=== PATIENT | male | born 1950 | race Caucasian/White ===

== ENCOUNTER 2017-06-04 04:11 | Observation (INO) ==
[2017-06-04] MEDS ORDERED: Aspirin 81 MG TAB.CHEW PO ONE (04:20)
--- NOTE | 2017-06-04 04:23 | Emergency Department Note ---
Disposition Clinical Impression: Chest pain Qualifiers: Chest pain type: unspecified Qualified Code(s): R07.9 - Chest pain, unspecified Disposition: Admitted As Inpatient Condition: Good [facility]: [facility] Care Provider[facility] - Time of Disposition: 05:10 Chest Pain HPI - General Time Seen by Provider: 06/04/17 04:17 Source: patient, EMS Limitations: no limitations Vital Signs Reviewed: Yes Nursing Notes Reviewed: Yes - History of Present Illness Pt complaint: chest pain Onset (ago): hour(s) (2) Duration: constant Onset: during rest (was asleep) Pain Location: substernal (radiated to right chest) Severity scale (1-10): 9 Quality: sharp Pain Radiation: LUE Improves with: remaining still Worsens with: nothing Associated symptoms: Reports: nausea, diaphoresis, dyspnea Treatments prior to arrival chest pain: aspirin (81mg) - Related Data Home Medications Medication Instructions Recorded Confirmed Insulin Glargine [Lantus] 14 unit 03/24/15 Metformin 1,000 PO 1-2XD 03/24/15 Previous Rx's Medication Instructions Recorded Aspirin Enteric Coated [Aspirin EC] 81 mg PO DAILY #0 tablet.dr 03/25/15 Atorvastatin [Lipitor] 80 mg PO HS #30 tablet 03/25/15 Clopidogrel Bisulfate [Plavix] 75 mg PO DAILY #30 tablet 03/25/15 Nicotine Patch [Nicoderm] 21 mg TD DAILY PRN #30 patch.td24 03/25/15 Ticagrelor [Brilinta] 90 mg PO BID #60 tablet 03/25/15 Allergies Allergy/AdvReac Type Severity Reaction Status Date / Time No Known Allergies Allergy Verified 03/24/15 11:36 All systems ED: reviewed and negative except as stated. Review of Systems: As Per HPI Constitutional: Denies: fever, chills Eyes: Denies: vision change ENT ED: Denies: throat pain Cardiovascular: Reports: as per HPI Respiratory: Reports: as per HPI. Denies: wheezes Gastrointestinal: Denies: abdominal pain, nausea, vomiting Genitourinary: Denies: dysuria Musculoskeletal: Reports: back pain (chronic) Integumentary: Denies: rash Neurological: Denies: headache Psychiatric: Denies: anxiety Endocrine: Denies: fatigue Allergic/Immunologic: Denies: facial swelling Chest Pain PMH - Past Medical History Medical history: Reports: diabetes, hyperlipidemia, hypertension, myocardial infarction, other Surgical history: Reports: angioplasty/stent, colectomy Psychiatric history: Reports: prior suicide attempt - Social History Smoking Status: Current every day smoker Alcohol use: Reports: none Drug use: Reports: none Physical Exam - General Limitations: no limitations General appearance: alert, in no apparent distress - Head Head exam: normocephalic - Eye Eye exam: Absent: conjunctival injection - ENT ENT exam: mucous membranes moist - Neck Neck exam: Present: full ROM - Chest Chest inspection: Present: symmetric chest wall rise - Respiratory Respiratory exam: Present: normal lung sounds bilaterally. Absent: respiratory distress - Cardiovascular Cardiovascular exam: Present: regular rate, normal rhythm - Abdominal Exam Abdominal exam: Present: soft, Non-Tender - Extremities Exam Extremities exam: Present: normal inspection, full ROM, normal capillary refill. Absent: pedal edema - Back Exam Back exam: Present: full ROM - Neurological Exam Neurological exam: Present: alert - Psychiatric Psychiatric exam: Present: normal affect, normal mood - Skin Skin exam: Present: warm, dry, intact, normal color. Absent: rash, cyanosis, diaphoresis Course Course Narrative: 66-year-old male diabetic smoker arrives via squad from home with c/o chest pain. It started when he was using his computer at home approx 2 hours prior to his arrival. Patient describes it as substernal 9 out of 10 sharp chest pain, that soon radiated to his right anterior chest. He states he felt pain and numbness in his LUE, but denies any neck or jaw pain. He states he was sleeping and had woke him from sleep, had that time he had accompanying shortness of breath, nausea, and hot flashes. He taken 81 mg of aspirin. He attempted to make it go away by resting when it had not, he attempted to be seen at the [place] [facility] but they were closed. Squad had been called from the [place] and transported him to the ED. He states that the pain has this point, now describing it 5 out of 10. Patient states that it is worse than his previous MIs (per pt report approximately 2014, and 2011), with a total of 3 cardiac stents, and 1 right carotid stent. He denies any recent cardiac workup. He states he feels it is another MA otherwise he would not have wanted to be seen since he usually doesn't like hospital visits. He mentions chronic back pain, but he denies recent illness, cough, abdominal pain, fever, bowel or bladder changes. EKG upon patient's arrival shows no acute signs of ischemia. Patient seen and examined. aspirin ordered. Workup initiated. Patient declines analgesics and antiemetics. - Reevaluation(s) Reevaluation #1: Patient's vital stable. He now describes pain as 2 out of 10. His workup tonight is unremarkable. Patient does have a concerning history, with significant cardiac risk factors. Medical records show that he had a STEMI approximately 2 years ago, with stent placement. Patient denies any recent cardiac workup. Patient discussed with Dr. Regan who agreed with workup, admission to hospital service for further cardiac evaluation. Per patient, home meds include: Metformin twice a day, Plavix, baby aspirin, atorvastatin, vitamin D3, and 28 units Lantus at bedtime Time: 05:15 Reevaluation #2: Pt discussed with and accepted by hospitalist Dr. Beckwith Time: 05:22 Vital Signs Temperature 98.2 F 06/04/17 04:14 Pulse Rate 81 06/04/17 04:14 Respiratory Rate 18 06/04/17 04:14 Blood Pressure 128/74 06/04/17 04:14 O2 Sat by Pulse Oximetry 98 06/04/17 04:14 Temperature 98.2 F 06/04/17 04:14 Pulse Rate 78 06/04/17 05:11 Respiratory Rate 18 06/04/17 05:11 Blood Pressure 133/77 06/04/17 05:11 O2 Sat by Pulse Oximetry 97 06/04/17 05:11 Oxygen Delivery Oxygen Delivery Room Air Chest Pain - MDM Narrative Medical decision making narrative: Chest X-Ray 06/04/17 04:20 IMPRESSION: Negative portable chest. D/ / Sudheer Turner MD / Sudheer Turner MD Interpreting Provider: Sudheer Turner MD Laboratory Tests 06/04/17 06/04/17 06/04/17 04:26 04:26 04:26 WBC 11.5 H RBC 5.12 Hgb 14.8 Hct 45.7 MCV 89.3 MCH 28.9 MCHC 32.4 RDW 14.1 Plt Count 229 MPV 9.6 Immature Gran % 0.5 Seg Neutrophils % 70.7 Lymphocytes % 18.2 Monocytes % 5.1 Eosinophils % 5.0 Basophils % 0.5 Neutrophils # 8.1 Lymphocytes # 2.1 Monocytes # 0.6 Eosinophils # 0.6 Basophils # 0.1 PT 11.4 INR 1.1 APTT 43.3 H Sodium 133 L Potassium 4.0 Chloride 101 Carbon Dioxide 28 BUN 16 Creatinine 1.00 Est GFR ( Amer) > 60 Est GFR (Non-Af Amer) > 60 BUN/Creatinine Ratio 16 Glucose 195 H Calculated Osmolality 283 Calcium 9.5 Troponin I < 0.03 - Lab Data Lab results reviewed: Yes I reviewed the patient's lab results. Result diagrams: 06/04/17 04:26 06/04/17 04:26 Lab Results 06/04/17 06/04/17 06/04/17 Range/Units 04:26 04:26 04:26 WBC 11.5 H (4.3-11.1) K/mcL RBC 5.12 (4.19-5.50) M/mcL Hgb 14.8 (12.9-16.9) g/dL Hct 45.7 (37.5-50.1) % MCV 89.3 (83.0-100.0) fL MCH 28.9 (28.0-33.3) pg MCHC 32.4 (31.6-35.5) g/dL RDW 14.1 (11.5-14.5) % Plt Count 229 (140-400) K/mcL MPV 9.6 (9.4-12.4) fL Immature Gran % 0.5 (0-4) % Seg Neutrophils % 70.7 % Lymphocytes % 18.2 % Monocytes % 5.1 % Eosinophils % 5.0 % Basophils % 0.5 % Neutrophils # 8.1 (1.6-8.9) K/mcL Lymphocytes # 2.1 (0.6-4.6) K/mcL Monocytes # 0.6 (0.0-1.3) K/mcL Eosinophils # 0.6 (0.0-0.6) K/mcL Basophils # 0.1 (0.0-0.2) K/mcL PT 11.4 (9.4-12.1) Seconds INR 1.1 APTT 43.3 H (26.0-36.0) Seconds Sodium 133 L (136-145) mEq/L Potassium 4.0 (3.5-5.1) mEq/L Chloride 101 (98-107) mEq/L Carbon Dioxide 28 (23-29) mEq/L BUN 16 (8-23) mg/dL Creatinine 1.00 (0.70-1.30) mg/dL Est GFR ( Amer) > 60 (> 60) Est GFR (Non-Af Amer) > 60 (> 60) BUN/Creatinine Ratio 16 (6-26) Glucose 195 H (70-105) mg/dL Calculated Osmolality 283 (280-300) Calcium 9.5 (8.6-10.3) mg/dL Troponin I < 0.03 (< 0.04) ng/mL - Radiology Data Radiology results reviewed: Yes I reviewed the patient's radiology results. - EKG Data EKG attestation: Yes I reviewed and interpreted this EKG. EKG shows normal: sinus rhythm Rate: normal Rhythm: NSR [place]/QRS: normal When compared to previous EKG there are: no significant changes (previous EKG february 2015) Interpretation: no acute changes Heart Score - Score History: Moderately Suspicious EKG: Normal Age: Greater than 65 Risk Factors: Equal/Greater than 3 risk factor or history of atherosclerotic disease Troponin: Less than normal limit HEART Score Total: 5
[2017-06-04 04:42] LABS: Basophils # 0.1 K/mcL (0.0-0.2); Basophils % 0.5 %; Eosinophils # 0.6 K/mcL (0.0-0.6); Hematocrit 45.7 % (37.5-50.1); Hemoglobin 14.8 g/dL (12.9-16.9); Immature Granulocytes % 0.5 % (0-4); Lymphocytes # 2.1 K/mcL (0.6-4.6); Lymphocytes % 18.2 %; Mean Corpuscular HGB Conc 32.4 g/dL (31.6-35.5); Mean Corpuscular Hemoglobin 28.9 pg (28.0-33.3); Mean Corpuscular Volume 89.3 fL (83.0-100.0); Mean Platelet Volume 9.6 fL (9.4-12.4); Monocytes # 0.6 K/mcL (0.0-1.3); Monocytes % 5.1 %; Neutrophils # 8.1 K/mcL (1.6-8.9); Platelet Count 229 K/mcL (140-400); Red Blood Count 5.12 M/mcL (4.19-5.50); Red Cell Distribution Width 14.1 % (11.5-14.5); Segmented Neutrophils % 70.7 %
--- NOTE | 2017-06-04 04:49 | Emergency Department Note ---
START Narrative - START START: For this encounter, I have reviewed the [employer] EXECUTIVE [employer]ODUCER or PA documentation, treatment plan, and medical decision making; and I have had face to face time with this patient. 66 year old male presents to the ED via EMs for chest pain and has a history of KS 2 years ago with concnerning risk factors. We will do cardiopulmonary workup and admit to medicine.
[2017-06-04 04:55] LABS: INR 1.1; Prothrombin Time 11.4 Seconds (9.4-12.1)
[2017-06-04 04:58] LABS: Activated Partial Thrombo Time 43.3 Seconds (26.0-36.0)
[2017-06-04 05:00] LABS: BUN/Creatinine Ratio 16 (6-26); Blood Urea Nitrogen 16 mg/dL (8-23); Calcium 9.5 mg/dL (8.6-10.3); Carbon Dioxide 28 mEq/L (23-29); Chloride 101 mEq/L (98-107); Glucose 195 mg/dL (70-105); Osmolality,Calculated 283 (280-300); Sodium 133 mEq/L (136-145); eGFR For African Americans > 60 (> 60); eGFR For Non-African Americans > 60 (> 60)
[2017-06-04 05:01] LABS: Troponin I < 0.03 ng/mL (< 0.04)
[2017-06-04] MEDS ORDERED: Naloxone 0.4 MG/ML INJ IVP PRN (05:28)
[2017-06-04] MEDS ORDERED: Acetaminophen 325 MG TABLET PO PRN (05:28)
[2017-06-04] MEDS ORDERED: Dextrose Gel 15 GM/37.5 ML TUBE PO PRN ×2 (05:30)
[2017-06-04] MEDS ORDERED: D5% in Water 1,000 ML IVC PRN (05:30)
[2017-06-04] MEDS ORDERED: *HR* Dextrose 50 % in Water (Syg) 50 ML SYRINGE IVP PRN (05:30)
--- NOTE | 2017-06-04 06:07 | Internal Med History&Physical ---
Date of Encounter: 06/04/17 Time of Encounter: 06:00 Assessment and Plan (1) Chest pain Current visit: Yes Status: Acute Observation. Monitor with telemetry. History of coronary artery disease and prior DE. Continues to smoke. High risk for ACS. Monitor vital signs. Trend troponins. 2-D echocardiogram. Nitroglycerin as needed for chest pain. If troponins negative, will do stress test. Qualifiers: Chest pain type: precordial pain Qualified Code(s): R07.2 - Precordial pain (2) Coronary artery disease Current visit: Yes Status: Chronic Patient presenting with chest pain. Trend troponins. Monitor vital signs. Continue aspirin and Plavix. Qualifiers: Coronary Disease-Associated Artery/Lesion type: tribal artery [place] vs. 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 Resume home medications once available. (4) Diabetes Current visit: Yes Status: Chronic Monitor blood sugars. Sliding scale coverage. Continue long-acting insulin. Check A1c. 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 Understands the importance of quitting. Does not want nicotine patch at this time Qualifiers: Nicotine product type: cigarettes Substance use status: other nicotine- induced disorder Qualified Code(s): F17.218 - Nicotine dependence, cigarettes , with other nicotine-induced disorders Internal Medicine - H&P: HPI Chief complaint: Chest pain Admitted From: Emergency Dept Plans for Post Hospital Care: Home History of present illness: Mr. Ng is a 66 year old male patient with a history of coronary artery disease , hypertension, chronic tobacco abuse, diabetes presented to the ER with complaints of chest pain. BNP 2:30 this morning when the patient was at home and working on his computer. He describes pain as central in location 9 out of 10 in severity at its worst and radiating to the right side of the of the chest. At The same time he had some heaviness in his left arm along with numbness that lasted for a few minutes. He took aspirin at home and went to the ER at [place] and was then transferred here. By the time he came to the ER here his pain had come down to 5 out of 10 in severity. He now feels much better although not completely pain free. He had cardiac catheterization and stent placement to the right coronary artery in 2014. Since then he has been doing well overall. He has never had any chest pain since then. He denies any fever or chills or night sweats. No palpitations. He has mild shortness of breath along with diaphoresis when the chest pain first began. Past Med Surg Social Fam HX - Past Medical History Attestation: Yes The following information was validated with the patient. Source: patient Medical history: diabetes, hyperlipidemia, hypertension, myocardial infarction, other Psychiatric history: prior suicide attempt - Past Surgical History Surgical History: angioplasty/stent, colectomy - Social History Smoking Status: Current every day smoker Smokeless Tobacco Status: No Alcohol use: none Drug use: none - Additional Family History Additional family history: Reviewed and found to be noncontributory at this time Internal Medicine - H&P: Meds Insulin Glargine [Lantus] 28 unit HS 03/24/15 [History] Metformin 1,000 PO 1-2XD 03/24/15 [History] Aspirin Enteric Coated [Aspirin EC] 81 mg PO DAILY #0 tablet.dr 03/25/15 [Rx] Atorvastatin [Lipitor] 80 mg PO HS #30 tablet 03/25/15 [Rx] Clopidogrel Bisulfate [Plavix] 75 mg PO DAILY #30 tablet 03/25/15 [Rx] Nicotine Patch [Nicoderm] 21 mg TD DAILY PRN #30 patch.td24 03/25/15 [Rx] Vitamin D3 06/04/17 [History] 3 Allergy/AdvReac Type Severity Reaction Status Date / Time No Known Allergies Allergy Verified 03/24/15 11:36 All Systems PM: A 10-system review of systems was performed and is negative for pertinent findings except as documented above in the HPI. - Constitutional Constitutional: no chills, no fever(s), no night sweats - EENT Eyes: no change in vision, no discharge, no pain, no photophobia Ears: no ear discharge, no ear pain, no tinnitus Nose, mouth and throat: no dysphagia, no nasal discharge, no neck pain, no sore throat - Cardiovascular Cardiovascular ROS IM: chest pain, no diaphoresis, no dyspnea, no lightheadedness, no palpitations, no syncope - Respiratory Respiratory: no cough, no dyspnea, no wheezing, no excessive phlegm production - Gastrointestinal Gastrointestinal: no abdominal pain, no diarrhea, no hematemesis, no hematochezia, no melena, no nausea, no vomiting - Musculoskeletal Musculoskeletal ROS IM: no numbness, no tingling - Integumentary Integumentary IM: no rash, no unusual bruising - Neurological Neurological ROS: no confusion, no convulsions, no focal weakness, no numbness, no tingling, no tremor(s) - Hematologic/Lymphatic Hematologic/Lymphatic: no easy bruising - Constitutional Vitals: Temp Pulse Resp BP Pulse Ox 98.2 F 78 18 133/77 97 06/04/17 04:14 06/04/17 05:11 06/04/17 05:11 06/04/17 05:11 06/04/17 05:11 General appearance: Present: cooperative, mild distress, A&O X 3, pleasant, answers questions appropriately - Eye Eye exam: Present: EOMI, PERRL, conjuntiva pink, sclera anicteric - Neck Neck exam general surgery: Present: supple, trachea midline. Absent: lymphadenopathy - Respiratory Respiratory exam: Present: CTAB, prolonged expiratory phase. Absent: accessory muscle use, rales, rhonchi, wheezes - Cardiovascular Cardiovascular exam: Present: RRR, +S1, +S2. Absent: diastolic murmur, gallop, rubs, systolic murmur - GI/Abdominal GI/Abdominal exam: Present: normal bowel sounds, soft, no peritoneal signs. Absent: distended, tenderness - Extremities Exam Extremities exam: Present: warm, radial pulses palpable and symmetrical. Absent : calf tenderness, cyanotic, pedal edema - Neurological Exam Neurological exam: Present: CN II-XII intact, oriented X3, no focal deficits. Absent: facial droop, speech deficit - Skin Skin exam: Present: dry, intact Internal Med - H&P Results - Labs CBC & Chem 7: 06/04/17 04:26 06/04/17 04:26
[2017-06-04 06:11] LABS: Chol/HDL Ratio 3.5 (0-4.9); Cholesterol 88 mg/dL (< 200); HDL Cholesterol 25 mg/dL (40-59); LDL Cholesterol,Calculated 24 mg/dL (0-99); Triglycerides 197 mg/dL (< 150)
[2017-06-04] MEDS: Insulin LISPRO 300 UNITS/3 ML VIAL SQ SCH ×3 (06:46→18:30)
[2017-06-04 09:03] LABS: Estimated Average Glucose 220 mg/dl; Hemoglobin A1C 9.3 %
[2017-06-04] MEDS: Aspirin Enteric Coated 81 MG Tablet PO SCH (09:18)
[2017-06-04] MEDS ORDERED: Regadenoson 0.4 MG/5 ML SYRINGE IVP ONE (09:27)
--- NOTE | 2017-06-04 15:09 | Cardiology Consult Note ---
<Julita Ibanez - Last Filed: 06/04/17 15:16> Date of Encounter: 06/04/17 Time of Encounter: 15:00 Assessment and Plan (1) Abnormal stress test Current Visit: Yes Status: Acute Patient presented with chest pain; symptoms somewhat atypical, states similar to prior [place] presentation. Troponin negative x2. No acute ST/T wave abnormalities noted. Last LHC 2014--s/p PCI to RCA; otherwise non-obstructive CAD. EF preserved. Abnormal stress today--mild basal to distal inferior wall perfusion defect in which ischemia cannot be excluded. Echo pending. Discussed medical management (BB, nitrates) vs. LHC with possible PCI. Patient will further discuss with Dr. Crocker. NPO after MN for possible LHC in AM. Will start low dose betablocker (has not been on d/t bradycardia in past--avg HR =73 since admit). Consider addition of nitrates. (2) Coronary artery disease Current Visit: Yes Status: Chronic Hx of CAD s/p PCI. Hx of STEMI 02/2015. Plan as above. Asa, statin, plavix. Has not been on BB d/t baseline bradycardia in the past, avg HR=73 overnight. Will start low dose betablocker and monitor HR overnight. Qualifiers: Coronary Disease-Associated Artery/Lesion type: [place] artery [place] vs. transplanted heart: [place] heart Associated angina: with stable angina Qualified Code(s): I25.118 - Atherosclerotic heart disease of [place] coronary artery with other forms of angina pectoris (3) Nicotine dependence Current Visit: Yes Status: Chronic tobacco cessation counseling provided. Qualifiers: Nicotine product type: cigarettes Substance use status: other nicotine- induced disorder Qualified Code(s): F17.218 - Nicotine dependence, cigarettes , with other nicotine-induced disorders Discussion w patient/family: The assessment and plan as outlined above was discussed with the patient and/or family members who expressed understanding and agreement. All questions were answered. Thank you for involving us in the care of your patient. Please call with any questions. The patient will be discussed and reviewed with Dr. Crocker; changes to be made accordingly. History of Present Illness Consult date: 06/04/17 Requesting physician: Angelia Cedeno Consult reason: Abnormal stress Chief complaint: Chest pain History of present illness: Mr. Ng is a 66 year old male with PMHx significant for prior [place] (STEMI 02/2015 ) s/p PCI, HTN, poorly controlled DMII, and tobacco use who presented to the [place] with complaints of chest pain. Reports pain started yesterday and lasted for several hours, described as mid-sternal sharpness with radiation across right side of chest. Associated symptoms include left arm numbness (to elbow) and a hot flash. He reports similar symptoms to prior [place]. He was then transferred from [place] to [facility] for further evaluation. Troponin negative x2, no acute ST/T wave changes noted. Cardiology consulted today for abnormal stress test--mild intensity basal to distal inferior perfusion defect which ischemia cannot be excluded. Echo is pending. Prior CV testing: TTE 02/2015: LVEF 55-60%, no significant valvular dysfunction, mild LVDD, normal wall motion LHC 02/2015: s/p successful PTCA/JOSE to mRCA; otherwise non-obstructive CAD ( 30% pLAD). Past Med Surg Social Fam HX - Past Medical History Attestation: Yes The following information was validated with the patient. Source: patient Medical history: coronary artery disease, diabetes, hyperlipidemia, hypertension , myocardial infarction, other (diabetic neuropathy) Psychiatric history: prior suicide attempt - Past Surgical History Surgical History: angioplasty/stent, colectomy - Social History Smoking Status: Current every day smoker Packs per day: 1.5-2 Smokeless Tobacco Status: No Alcohol use: none Drug use: none - Family History Mother Hx Family Cardiac Disorders: Yes (CHF, CABG) Medications and Allergies Insulin Glargine [Lantus] 30 unit SQ HS 03/24/15 [History] Aspirin Enteric Coated [Aspirin EC] 81 mg PO DAILY #0 tablet.dr 03/25/15 [Rx] Atorvastatin [Lipitor] 80 mg PO HS #30 tablet 03/25/15 [Rx] Clopidogrel Bisulfate [Plavix] 75 mg PO DAILY #30 tablet 03/25/15 [Rx] Cholecalciferol (D-3) [Vitamin D] 1,000 unit PO DAILY 06/04/17 [History] Ergocalciferol (VITAMIN D2) [Vitamin D2] 50,000 unit PO QWEEK 06/04/17 [History] Insulin ASPART [NovoLOG] 0 unit SQ TID PRN 06/04/17 [History] metFORMIN [Glucophage] 1,000 mg PO BID 06/04/17 [History] 3 Allergy/AdvReac Type Severity Reaction Status Date / Time No Known Allergies Allergy Verified 03/24/15 11:36 All Systems Review: The remainder of the systems were reviewed and are negative - Cardiovascular Cardiovascular: as per HPI Physical Examination General: Conversant, No Apparent Distress HEENT: Atraumatic, Normocephaly, Mucus Membranes Moist Cardiac: Reg Rate and Rhythm, Normal S1 and S2 Lungs: Normal Breath Sounds Neuro: Alert and responsive Abdomen: Soft Skin: No rashes noted on visualized skin Musculoskeletal: No Chest Wall Tenderness Extremities: Other (mild BLE edema) Results 06/04/17 04:26 06/04/17 04:26 Lab Results 06/04/17 10:28 Troponin I < 0.03 Active Medications Acetaminophen (Tylenol) 650 mg PO Q6HR PRN PRN Reason: Mild Pain/Fever Stop: 12/04/17 05:29 Aspirin (Aspirin Ec) 81 mg PO DAILY ELLEN Stop: 12/04/17 09:01 Last Admin: 06/04/17 09:18 Dose: Not Given Atorvastatin Calcium (Lipitor) 80 mg PO HS [facility] Stop: 12/04/17 21:01 Clopidogrel Bisulfate (Plavix) 75 mg PO DAILY ELLEN Stop: 12/04/17 09:01 Last Admin: 06/04/17 09:18 Dose: Not Given Dextrose/Water (Dextrose 50% (Syg)) 25 ml IVP AD PRN PRN Reason: Hypoglycemia Stop: 12/04/17 05:31 Glucagon (Glucagen) 1 mg IM ONCE PRN PRN Reason: Hypoglycemia Stop: 12/04/17 05:31 Glucose (Gluctose) 15 gm PO ONCE PRN PRN Reason: Hypoglycemia Stop: 12/04/17 05:31 Glucose (Gluctose) 30 gm PO ONCE PRN PRN Reason: Hypoglycemia Stop: 12/04/17 05:31 Dextrose (Dextrose 5%) 1,000 mls @ 100 mls/hr IVC .Q10H PRN PRN Reason: HYPOGLYCEMIA Stop: 12/04/17 05:31 Insulin Human Lispro (Humalog) 0 units SQ Q6HR ELLEN PRN Reason: Protocol Stop: 12/04/17 06:01 Last Admin: 06/04/17 11:53 Dose: Not Given Naloxone HCl (Narcan) 0.4 mg IVP Q2MIN PRN PRN Reason: SEE COMMENTS Stop: 12/04/17 05:29 - Imaging and Cardiology Stress Test: report reviewed Echo: report reviewed Cardiac cath: report reviewed Other Results: 12 hour tele: avg HR=73 SR. No significant event noted. - EKG Interpretation EKG results cardiology: personally reviewed Consult Discharge Plan - Plan Referrals: [facility] [Primary Care Provider] - <Serjio Crocker - Last Filed: 06/05/17 11:05> Date of Encounter: 06/05/17 - Attending Attestation I have personally performed a face to face evaluation on this patient. I have reviewed and agree with the care plan. History and Exam by me shows: 66 YOM with hx of CAD and 3 stents in the past. Last LHC 2014 with PCI to the RCA. Complains of chest pain RSCP, heaviness non radiating lasting about 30 mins more intense than his episode in 2015 with similiar characteristics. We discussed the findings on his NST and the possibilities of a LHC Vs medical management and he has now decided to proceed with a LHC. He is a reliable historian with previous 2 episodes of chest pain resulting in PCI. Assessment and Plan Discussion w patient/family: The assessment and plan as outlined above was discussed with the patient and/or family members who expressed understanding and agreement. All questions were answered. Thank you for involving us in the care of your patient. Please call with any questions. History of Present Illness History of present illness: Mr. Ng is a 66 year old male All Systems Review: The remainder of the systems were reviewed and are negative Physical Examination Vital Signs, Last 4 Hours Temp Pulse Resp BP Pulse Ox 06/05/17 09:30 94 06/05/17 07:34 98.0 F 63 17 141/81 94 Results 06/05/17 05:01 06/05/17 05:01 Lab Results 06/04/17 06/04/17 06/05/17 10:28 16:34 05:01 WBC 10.0 Hgb 14.3 Hct 44.5 Plt Count 229 INR APTT Sodium Potassium Chloride Carbon Dioxide BUN Creatinine Glucose Calcium Troponin I < 0.03 < 0.03 06/05/17 06/05/17 05:01 05:01 WBC Hgb Hct Plt Count INR 1.1 APTT 41.3 H Sodium 136 Potassium 4.1 Chloride 104 Carbon Dioxide 24 BUN 21 Creatinine 0.98 Glucose 230 H Calcium 9.4 Troponin I
[2017-06-04] MEDS: Metoprolol XL (24 HR) Succ 25 MG TAB.ER.24H PO SCH (16:02)
--- NOTE | 2017-06-04 16:20 | Internal Med Progress Note ---
Date of Encounter: 06/04/17 Time of Encounter: 16:17 - Assessment and plan (1) Abnormal stress test Current Visit: Yes Status: Acute Assessment and plan: Patient presented with chest pain with atypical symptoms at the patient states were similar to his previous presentation with heart attack Troponin negative x2. No acute ST/T wave abnormalities on EKG Previous left heart catheter in 2015 status post PCI to the RCA, otherwise nonobstructive CAD with preserved EF Stress test completed and was reported as: Abnormal stress with mild basal to distal inferior wall perfusion defect in which ischemia cannot be excluded. Echo pending. Cardiology was consulted and discussed medical management versus [facility] with possible PCI. Patient discussed with acid cleaner and decided on left heart catheter. NPO after midnight for left heart catheter in a.m. Cardiology started on low-dose beta jose l as he has not been on a beta jose l jose l in the past due to bradycardia. Cardiology is considering addition of nitrates as well. (2) Chest pain Current Visit: Yes Status: Acute Assessment and plan: 66-year-old male with a history of CAD, hypertension, chronic tobacco abuse, diabetes and previous heart catheter presented to the emergency room with complaints of chest pain. He described the pain as central in location 9 out 10 in severity at its worst it radiating to the right side of his chest. At the same time he had some heaviness in his left arm along with numbness that lasted for a few minutes. He took aspirin and went to the ER at the [facility]. He was transferred to this facility. By the time he arrived to the ER at this facility is pain at come down to 5 out of 10. He was not completely pain free on arrival but felt much better. His last cardiac catheterization was in 2014 with a stent placed to the right coronary artery. Had no chest pain since that time and has been doing well in general. Troponins are negative EKG without ST changes Stress test was abnormal Cardiology consult Plan for left heart catheter in the a.m. with nothing by mouth after midnight Patient is aware. He is also started on a beta jose l Qualifiers: Chest pain type: precordial pain Qualified Code(s): R07.2 - Precordial pain (3) Coronary artery disease Current Visit: Yes Status: Chronic Qualifiers: Coronary Disease-Associated Artery/Lesion type: [place] artery [place] vs. transplanted heart: [place] heart Associated angina: with stable angina Qualified Code(s): I25.118 - Atherosclerotic heart disease of [place] coronary artery with other forms of angina pectoris (4) Diabetes Current Visit: Yes Status: Chronic Assessment and plan: Accu-Cheks before meals and at bedtime with sliding scale insulin. Hold oral glycemic agents until discharge Qualifiers: Diabetes mellitus type: type 2 Diabetes mellitus [facility] insulin use: with terminal clerk use Diabetes mellitus complication status: with circulatory complication Diabetes mellitus complication detail: with other circulatory complications Qualified Code(s): E11.59 - Type 2 diabetes mellitus with other circulatory complications; Z79.4 - terminal gauger (current) use of insulin; Z79.4 - terminal gauger (current) use of insulin; Z79.4 - terminal gauger (current) use of insulin; Z79.4 - halfway (current) use of insulin (5) Essential hypertension Current Visit: Yes Status: Chronic Assessment and plan: Blood pressure is stable (6) Nicotine dependence Current Visit: Yes Status: Chronic Assessment and plan: Patient states he has no intention of stopping smoking after 56 years. Advised cessation and stated there is benefit no matter when you quit. He is not interested Qualifiers: Nicotine product type: cigarettes Substance use status: other nicotine- induced disorder Qualified Code(s): F17.218 - Nicotine dependence, cigarettes , with other nicotine-induced disorders - Subjective Interval history: Patient is chest pain-free at this time. He has no questions or complaints. Cardiology spoke to him about his abnormal stress test and he is aware he is for left heart catheter tomorrow. He is a current tobacco smoker and says he has no intention of quitting since he smoked for 56 years. Denies current chest pain, shortness of breath, abdominal pain, headache or dizziness. - Constitutional Vitals: Temp Pulse Resp BP Pulse Ox 97.5 F L 67 18 122/68 94 06/04/17 15:07 06/04/17 15:07 06/04/17 15:07 06/04/17 15:07 06/04/17 15:07 General appearance: Present: cooperative, A&O X 3, pleasant, obese, answers questions appropriately - Head Head exam: Present: atraumatic, normocephalic - Eye Eye exam: Present: PERRL, conjuntiva pink, sclera anicteric Pupils: Present: PERRL - Neck Neck exam general surgery: Present: supple, trachea midline. Absent: lymphadenopathy - Respiratory Respiratory exam: Present: CTAB. Absent: accessory muscle use, rales, rhonchi, wheezes - Cardiovascular Cardiovascular exam: Present: RRR, +S1, +S2. Absent: diastolic murmur, gallop, rubs, systolic murmur - GI/Abdominal GI/Abdominal exam: Present: normal bowel sounds, soft, no peritoneal signs. Absent: distended, tenderness - Extremities Exam Extremities exam: Present: warm, radial pulses palpable and symmetrical. Absent : calf tenderness, cyanotic, pedal edema - Neurological Exam Neurological exam: Present: alert, CN II-XII intact, oriented X3, no focal deficits, strengths equal and symetr throughout. Absent: pronater drift, facial droop, speech deficit - Skin Skin exam: Present: dry, intact, normal color, warm Internal Medicine: Result - Labs CBC & Chem 7: 06/04/17 04:26 06/04/17 04:26 Labs: Cardiac Enzymes 06/04/17 Range/Units 10:28 Troponin I < 0.03 (< 0.04) ng/mL - ABG Interpretation ABG results: PT/INR, D-dimer PT 11.4 Seconds (9.4-12.1) 06/04/17 04:26 Consult Discharge Plan - Plan [facility]errals: [facility] [Primary Care Provider] -
--- NOTE | 2017-06-04 20:24 | Electrocardiograph Report ---
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
[2017-06-05] MEDS: Insulin LISPRO 300 UNITS/3 ML VIAL SQ SCH ×3 (01:11→12:30)
[2017-06-05 06:36] LABS: BUN/Creatinine Ratio 21 (6-26); Basophils # 0.1 K/mcL (0.0-0.2); Basophils % 0.7 %; Blood Urea Nitrogen 21 mg/dL (8-23); Calcium 9.4 mg/dL (8.6-10.3); Carbon Dioxide 24 mEq/L (23-29); Chloride 104 mEq/L (98-107); Eosinophils # 0.4 K/mcL (0.0-0.6); Glucose 230 mg/dL (70-105); Hematocrit 44.5 % (37.5-50.1); Hemoglobin 14.3 g/dL (12.9-16.9); Immature Granulocytes % 0.4 % (0-4); Lymphocytes # 2.6 K/mcL (0.6-4.6); Lymphocytes % 25.6 %; Mean Corpuscular HGB Conc 32.1 g/dL (31.6-35.5); Mean Corpuscular Volume 90.3 fL (83.0-100.0); Mean Platelet Volume 10.3 fL (9.4-12.4); Monocytes # 0.5 K/mcL (0.0-1.3); Monocytes % 4.8 %; Neutrophils # 6.5 K/mcL (1.6-8.9); Nucleated Red Blood Cells 0.2 /100 WBC (0); Osmolality,Calculated 292 (280-300); Platelet Count 229 K/mcL (140-400); Potassium 4.1 mEq/L (3.5-5.1); Red Blood Count 4.93 M/mcL (4.19-5.50); Red Cell Distribution Width 14.3 % (11.5-14.5); Segmented Neutrophils % 64.5 %; Sodium 136 mEq/L (136-145); eGFR For African Americans > 60 (> 60); eGFR For Non-African Americans > 60 (> 60)
[2017-06-05 06:40] LABS: INR 1.1; Prothrombin Time 11.9 Seconds (9.4-12.1)
[2017-06-05 06:43] LABS: Activated Partial Thrombo Time 41.3 Seconds (26.0-36.0)
--- NOTE | 2017-06-05 08:48 | Cardiology Progress Note ---
Date of Encounter: 06/05/17 Time of Encounter: 08:00 Assessment and Plan (1) Abnormal stress test Current Visit: Yes Status: Acute Patient presented with chest pain; symptoms somewhat atypical, states similar to prior [place] presentation. Troponin negative x2. No acute ST/T wave abnormalities noted. Last [facility] 2014--s/p PCI to RCA; otherwise non-obstructive CAD. EF preserved. Abnormal stress 06/04/17--mild basal to distal inferior wall perfusion defect in which ischemia cannot be excluded. Echo pending. Discussed medical management (BB, nitrates) vs. [facility] with possible PCI. Patient will further discuss with Dr. Crocker. Discussed with patient this AM--he prefers to trial medical therapy (BB, nitrates) and follow-up in the outpatient setting; continue low dose BB and will start Imdur 30 mg daily today. Will coordinate outpt follow-up in 3-4 weeks to reassess symptoms. (2) Coronary artery disease Current Visit: Yes Status: Chronic Hx of CAD s/p PCI. Hx of STEMI 02/2015. Plan as above. Asa, statin, plavix. Has not been on BB d/t baseline bradycardia in the past, avg HR=73 overnight. HR stable overnight, continue low dose BB. Will start Nitrate today. Qualifiers: Coronary Disease-Associated Artery/Lesion type: [place] artery [place] vs. transplanted heart: [place] heart Associated angina: with stable angina Qualified Code(s): I25.118 - Atherosclerotic heart disease of [place] coronary artery with other forms of angina pectoris (3) Nicotine dependence Current Visit: Yes Status: Chronic tobacco cessation counseling provided. Qualifiers: Nicotine product type: cigarettes Substance use status: other nicotine- induced disorder Qualified Code(s): F17.218 - Nicotine dependence, cigarettes , with other nicotine-induced disorders Discussion w patient/family: The assessment and plan as outlined above was discussed with the patient and/or family members who expressed understanding and agreement. All questions were answered. Thank you for involving us in the care of your patient. Please call with any questions. The patient will be discussed and reviewed with Dr. Crocker; changes to be made accordingly. Subjective Principal diagnosis: Abnormal stress test Interval history: Seen and examined. No chest pain overnight. Denies any other new CV symptoms. Objective Vital Signs, Last 4 Hours Temp Pulse Resp BP Pulse Ox 06/05/17 07:34 98.0 F 63 17 141/81 94 General: Conversant, No Apparent Distress HEENT: Atraumatic, Normocephaly, Mucus Membranes Moist Neck: No JVD, Normal carotid pulses Cardiac: Reg Rate and Rhythm, Normal S1 and S2, No Murmur Lungs: Normal Breath Sounds, No Wheeze, Rales, Rhonchi Neuro: Alert and responsive, No focal deficits noted Abdomen: Soft, Non-Tender Skin: No rashes noted on visualized skin Musculoskeletal: No Chest Wall Tenderness Extremities: No Clubbing, No Cyanosis, Other (mild BLE edema) Results 06/05/17 05:01 06/05/17 05:01 Lab Results 06/04/17 06/04/17 06/05/17 10:28 16:34 05:01 WBC 10.0 Hgb 14.3 Hct 44.5 Plt Count 229 INR APTT Sodium Potassium Chloride Carbon Dioxide BUN Creatinine Glucose Calcium Troponin I < 0.03 < 0.03 06/05/17 06/05/17 05:01 05:01 WBC Hgb Hct Plt Count INR 1.1 APTT 41.3 H Sodium 136 Potassium 4.1 Chloride 104 Carbon Dioxide 24 BUN 21 Creatinine 0.98 Glucose 230 H Calcium 9.4 Troponin I Active Medications Acetaminophen (Tylenol) 650 mg PO Q6HR PRN PRN Reason: Mild Pain/Fever Stop: 12/04/17 05:29 Aspirin (Aspirin Ec) 81 mg PO DAILY [facility] Stop: 12/04/17 09:01 Last Admin: 06/04/17 09:18 Dose: Not Given Atorvastatin Calcium (Lipitor) 80 mg PO HS [facility] Stop: 12/04/17 21:01 Last Admin: 06/04/17 21:43 Dose: 80 mg Clopidogrel Bisulfate (Plavix) 75 mg PO DAILY [facility] Stop: 12/04/17 09:01 Last Admin: 06/04/17 09:18 Dose: Not Given Dextrose/Water (Dextrose 50% (Syg)) 25 ml IVP AD PRN PRN Reason: Hypoglycemia Stop: 12/04/17 05:31 Glucagon (Glucagen) 1 mg IM ONCE PRN PRN Reason: Hypoglycemia Stop: 12/04/17 05:31 Glucose (Gluctose) 15 gm PO ONCE PRN PRN Reason: Hypoglycemia Stop: 12/04/17 05:31 Glucose (Gluctose) 30 gm PO ONCE PRN PRN Reason: Hypoglycemia Stop: 12/04/17 05:31 Dextrose (Dextrose 5%) 1,000 mls @ 100 mls/hr IVC .Q10H PRN PRN Reason: HYPOGLYCEMIA Stop: 12/04/17 05:31 Insulin Human Lispro (Humalog) 0 units SQ Q6HR ELLEN PRN Reason: Protocol Stop: 12/04/17 06:01 Last Admin: 06/05/17 06:55 Dose: Not Given Isosorbide Mononitrate (Imdur) 30 mg PO DAILY [facility] Stop: 12/05/17 09:01 Metoprolol Succinate (Toprol Xl) 12.5 mg PO DAILY [facility] Stop: 12/04/17 15:31 Last Admin: 06/04/17 16:02 Dose: 12.5 mg Naloxone HCl (Narcan) 0.4 mg IVP Q2MIN PRN PRN Reason: SEE COMMENTS Stop: 12/04/17 05:29 - Imaging and Cardiology Stress Test: report reviewed Echo: pending Other Results: 12 hour tele: avg HR=67 SR. - EKG Interpretation EKG results cardiology: personally reviewed Consult Discharge Plan - Plan [facility]errals: [facility] [Primary Care Provider] -
[2017-06-05] MEDS: Isosorbide MONOnitrate (24 HR) 30 MG TAB.ER.24H PO SCH (09:30)
[2017-06-05] MEDS: Metoprolol XL (24 HR) Succ 25 MG TAB.ER.24H PO SCH (09:30)
[2017-06-05] MEDS: Aspirin Enteric Coated 81 MG Tablet PO SCH (09:31)
--- NOTE | 2017-06-05 13:50 | Pre-Sedation Evaluation ---
Pre-sedation evaluation - Pre-sedation checklist Date of procedure: 06/05/17 Procedure: [facility] Recent Vitals: Last Vital Signs Temp 97.7 F 06/05/17 12:06 Pulse 77 06/05/17 12:06 Resp 17 06/05/17 12:06 BP 151/78 06/05/17 12:06 Pulse Ox 97 06/05/17 12:06 H&P (including ROS) documented in medical record: Yes Previous reaction to sedatives/anesthetics: No Dietary Status: NPO after Midnight Airway Assessment: Patient can open mouth completely, TMJ function normal, Micrognathia (under-bite, receding chin) absent, Neck with adequate range of motion Dentition: dentures removed Possible difficult airway: No ASA Classification *see protocol: CLASS II-Mild systemic disease Plan of Care: Pt appropriate candidate for procedure/moderate/conscious sedation , Risks/benefits of procedure/sedation discussed w/ patient/family
[2017-06-05] MEDS ORDERED: 0.9 % Sodium Chloride 2,000 ML ONE (14:03)
[2017-06-05] MEDS ORDERED: ISOVUE-370 200 ML INFUS..BTL IV ONE ×2 (14:04→15:01)
[2017-06-05] MEDS ORDERED: *HR* Heparin 10,000 UNIT/10 ML VIAL ONE (14:04)
[2017-06-05] MEDS ORDERED: Nitroglycerin 1,000 MCG/10 ML VIAL IV ONE (14:04)
[2017-06-05] MEDS ORDERED: Heparin 1,000 UNITS/500 mL 500 ML ONE (14:04)
[2017-06-05] MEDS ORDERED: *HR* Midazolam HCl 2 MG/2 ML VIAL ONE ×2 (14:25→14:48)
[2017-06-05] MEDS ORDERED: *HR* FentaNYL (PF) 100 MCG/2 ML VIAL ONE (14:25)
[2017-06-05] MEDS ORDERED: *HR* Bivalirudin 250 MG VIAL IVC ONE (14:43)
--- NOTE | 2017-06-05 17:35 | Internal Med Progress Note ---
Date of Encounter: 06/05/17 Time of Encounter: 09:20 - Assessment and plan (1) Abnormal stress test Current Visit: Yes Status: Acute Assessment and plan: Patient with mild intensity stress perfusion defect involving the basal to distal inferior wall, ischemia cannot be excluded. Patient indicated EF of greater than 70%. [facility] today with PTCA to single major vessel. LHC showed single-vessel CAD, LV with EF of 55%, successful PTCA and proximal/distal RCA. Recommend dual antiplatelet therapy, optimal medical therapy, aggressive risk factor modification. Risk factors include smoking, diabetes, hypertension. (2) Chest pain Current Visit: Yes Status: Acute Assessment and plan: Patient denies. Troponins are negative. Chest x-ray negative. [facility] completed today. Results above. Continue telemetry Start [facility] Cardiology following. Qualifiers: Chest pain type: precordial pain Qualified Code(s): R07.2 - Precordial pain (3) Coronary artery disease Current Visit: Yes Status: Chronic Assessment and plan: She with severe single vessel disease per [facility] today. She will continue aspirin , Plavix, Lipitor, beta jose l discharge. Continue telemetry. Qualifiers: Coronary Disease-Associated Artery/Lesion type: [place] artery [place] vs. transplanted heart: [place] heart Associated angina: with stable angina Qualified Code(s): I25.118 - Atherosclerotic heart disease of [place] coronary artery with other forms of angina pectoris (4) Diabetes Current Visit: Yes Status: Chronic Assessment and plan: Patient with uncontrolled diabetes, hemoglobin A1c 9.3%. Sliding scale insulin, diabetic diet, Accu-Cheks before meals and at bedtime during admission. Continue Glucophage after discharge and encourage patient to comply with ADA diet. He will need close follow-up after discharge. Recommend patient sees endocrinology. 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 Patient started on low-dose beta jose l. Continue to monitor. (6) Nicotine dependence Current Visit: Yes Status: Chronic Assessment and plan: Patient denies need for HTN replacement therapy at this time. We will continue to emphasize the need to stop smoking. Qualifiers: Nicotine product type: cigarettes Substance use status: other nicotine- induced disorder Qualified Code(s): F17.218 - Nicotine dependence, cigarettes , with other nicotine-induced disorders - Time Spent With Patient less than 15 minutes - Subjective Interval history: Patient was seen and assessed at bedside at 9:20 AM. Daughter at bedside. Patient denies any chest pain, shortness of breath, nausea, vomiting, diarrhea. He denies any abdominal pain, urinary symptoms, headache, dizziness, blurred vision. Patient is staying for stress test today. He denies any further questions or concerns. Continues to deny need for nicotine replacement. - Constitutional Vitals: Temp Pulse Resp BP Pulse Ox 97.7 F 77 17 151/78 97 06/05/17 12:06 06/05/17 12:06 06/05/17 12:06 06/05/17 12:06 06/05/17 12:06 General appearance: Present: cooperative, A&O X 3, pleasant, no acute distress, obese, answers questions appropriately - Head Head exam: Present: atraumatic, normal inspection, normocephalic - Eye Eye exam: Present: normal appearance, conjuntiva pink, sclera anicteric - Neck Neck exam general surgery: Present: supple, trachea midline. Absent: lymphadenopathy - Respiratory Respiratory exam: Present: CTAB. Absent: accessory muscle use, chest wall tenderness, decreased breath sounds, rales, respiratory distress, rhonchi, wheezes - Cardiovascular Cardiovascular exam: Present: RRR, +S1, +S2. Absent: bradycardia, diastolic murmur, gallop, rubs, systolic murmur, tachycardia - GI/Abdominal GI/Abdominal exam: Present: normal bowel sounds, soft. Absent: distended, hepatomegaly, tenderness - Extremities Exam Extremities exam: Present: normal capillary refill, normal inspection, warm, radial pulses palpable and symmetrical. Absent: calf tenderness, cyanotic, pedal edema, tenderness - Neurological Exam Neurological exam: Present: alert, oriented X3, no focal deficits. Absent: facial droop, speech deficit - Skin Skin exam: Present: dry, intact, normal color, warm. Absent: rash Internal Medicine: Result - Labs CBC & Chem 7: 06/05/17 05:01 06/05/17 05:01 Labs: Short CBC 06/05/17 Range/Units 05:01 WBC 10.0 (4.3-11.1) K/mcL Hgb 14.3 (12.9-16.9) g/dL Hct 44.5 (37.5-50.1) % Plt Count 229 (140-400) K/mcL Neutrophils # 6.5 (1.6-8.9) K/mcL BMP 06/05/17 05:01 Sodium 136 Potassium 4.1 Chloride 104 Carbon Dioxide 24 BUN 21 Creatinine 0.98 Glucose 230 H Calcium 9.4 - ABG Interpretation ABG results: PT/INR, D-dimer PT 11.9 Seconds (9.4-12.1) 06/05/17 05:01 - Impressions Impressions Echocardiogram 06/05/17 05:30 Impressions: LVEF 55-60%. Mild left ventricular diastolic dysfunction. Normal right ventricular structure and function. No significant valvular dysfunction. No pulmonary hypertension. Left Ventricular Wall Motion: Rest Echo Findings All wall segments showed normal motion. Findings: Study Quality * Technically adequate exam. ECG Findings * Sinus bradycardia. Left Ventricle * LVEF 55-60%. * Mild left ventricular diastolic dysfunction. * Normal LV size and wall thickness. Right Ventricle * Normal right ventricular structure and function. Left Atrium * Normal left atrial size. Right Atrium * Normal right atrial size. Mitral Valve * Normal mitral valve structure. * No mitral stenosis. * Trace mitral regurgitation. Aortic Valve * No aortic regurgitation. * Trileaflet aortic valve. * No aortic stenosis. Tricuspid Valve * Tricuspid valve not well visualized. * Trace tricuspid regurgitation. * Estimated RA pressure is 3 mmHg. * Estimated RVSP is 9 mmHg. * No pulmonary hypertension. Pulmonic Valve * Pulmonic valve is not well visualized. * No pulmonic stenosis. * No pulmonic regurgitation. Pulmonary Artery * Pulmonary artery not well visualized. Aorta * Normally sized aortic root. Pericardium * There is no pericardial effusion present. Interatrial Septum * No evidence of PFO by color Doppler. IVC * Normal IVC dimensions and inspiratory collapse. Consult Discharge Plan - Plan Referrals: [facility] [Primary Care Provider] -
[2017-06-05] MEDS ORDERED: Insulin LISPRO 300 UNITS/3 ML VIAL SQ SCH (21:15)
[2017-06-06] MEDS ORDERED: Insulin LISPRO 300 UNITS/3 ML VIAL SQ SCH ×4 (07:30→11:30)
[2017-06-06] MEDS: Metoprolol XL (24 HR) Succ 25 MG TAB.ER.24H PO SCH (09:45)
[2017-06-06] MEDS: Aspirin Enteric Coated 81 MG Tablet PO SCH (09:45)
[2017-06-06] MEDS: Isosorbide MONOnitrate (24 HR) 30 MG TAB.ER.24H PO SCH (09:45)
--- NOTE | 2017-06-06 10:41 | Cardiology Progress Note ---
Date of Encounter: 06/06/17 Time of Encounter: 09:00 Assessment and Plan (1) Abnormal stress test Current Visit: Yes Status: Acute Per cardiology: -Abnormal stress 06/04/17--mild basal to distal inferior wall perfusion defect in which ischemia cannot be excluded. -S/P LHC yesterday with balloon angioplasty to RCA. -Denies chest pain overnight. -RIght groin access site without hematoma or ecchymosis. Right groin acces site management education reviewed with patient. States understanding. -On asa, plavix, statin, beta jose l. Educated on importance of dual anti- platelet therapy uninterrupted for at least one month. States understanding. -Labs with hemoglobin and creatining with in normal limits. -cardiology will sign off. 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 (2) Coronary artery disease Current Visit: Yes Status: Chronic Per cardiology: -Hx of CAD s/p PCI. Hx of STEMI 02/2015. -Asa, statin, plavix, BB -LHC with balloon angioplasty to RCA> -TTE with LVEF preserved, no segmental wall motion abnormalities. -Recommend patient follow with primary hot cell technician. Qualifiers: Coronary Disease-Associated Artery/Lesion type: [place] artery [place] vs. transplanted heart: [place] heart Associated angina: with stable angina Qualified Code(s): I25.118 - Atherosclerotic heart disease of [place] coronary artery with other forms of angina pectoris (3) Nicotine dependence Current Visit: Yes Status: Chronic Per cardiology: -tobacco cessation counseling provided. Qualifiers: Nicotine product type: cigarettes Substance use status: other nicotine- induced disorder Qualified Code(s): F17.218 - Nicotine dependence, cigarettes , with other nicotine-induced disorders Discussion w patient/family: The assessment and plan as outlined above was discussed with the patient who expressed understanding and agreement. All questions were answered. Thank you for involving us in the care of your patient. Please call with any questions. Discussed and reviewed with . Subjective Principal diagnosis: Abnormal stress test Interval history: Patient is s/p LHC yesterday with balloon angioplasty. Denies chest pain. Denies issues walking or using right leg. Objective Vital Signs, Last 4 Hours Temp Pulse Resp BP Pulse Ox 06/06/17 07:17 97.5 F L 72 16 109/60 98 General: Conversant, No Apparent Distress HEENT: Atraumatic, Normocephaly, Mucus Membranes Moist Neck: No JVD, Normal carotid pulses Cardiac: Reg Rate and Rhythm, Normal S1 and S2, No Murmur Lungs: Normal Breath Sounds, No Wheeze, Rales, Rhonchi Neuro: Alert and responsive, No focal deficits noted Abdomen: Soft, Non-Tender Skin: No rashes noted on visualized skin, Other (Right groin access site without hematoma or ecchymosis. ) Musculoskeletal: No Chest Wall Tenderness Extremities: No Clubbing, No Cyanosis, No Edema, Normal Pulses Results 06/06/17 11:36 06/06/17 11:36 Lab Results Impressions Echocardiogram 06/05/17 05:30 Impressions: LVEF 55-60%. Mild left ventricular diastolic dysfunction. Normal right ventricular structure and function. No significant valvular dysfunction. No pulmonary hypertension. Left Ventricular Wall Motion: Rest Echo Findings All wall segments showed normal motion. Findings: Study Quality * Technically adequate exam. ECG Findings * Sinus bradycardia. Left Ventricle * LVEF 55-60%. * Mild left ventricular diastolic dysfunction. * Normal LV size and wall thickness. Right Ventricle * Normal right ventricular structure and function. Left Atrium * Normal left atrial size. Right Atrium * Normal right atrial size. Mitral Valve * Normal mitral valve structure. * No mitral stenosis. * Trace mitral regurgitation. Aortic Valve * No aortic regurgitation. * Trileaflet aortic valve. * No aortic stenosis. Tricuspid Valve * Tricuspid valve not well visualized. * Trace tricuspid regurgitation. * Estimated RA pressure is 3 mmHg. * Estimated RVSP is 9 mmHg. * No pulmonary hypertension. Pulmonic Valve * Pulmonic valve is not well visualized. * No pulmonic stenosis. * No pulmonic regurgitation. Pulmonary Artery * Pulmonary artery not well visualized. Aorta * Normally sized aortic root. Pericardium * There is no pericardial effusion present. Interatrial Septum * No evidence of PFO by color Doppler. IVC * Normal IVC dimensions and inspiratory collapse. Active Medications Acetaminophen (Tylenol) 650 mg PO Q6HR PRN PRN Reason: Mild Pain/Fever Stop: 12/04/17 05:29 Aspirin (Aspirin Ec) 81 mg PO DAILY ELLEN Stop: 12/04/17 09:01 Last Admin: 06/06/17 09:45 Dose: 81 mg Atorvastatin Calcium (Lipitor) 80 mg PO HS ELLEN Stop: 12/04/17 21:01 Last Admin: 06/05/17 21:25 Dose: 80 mg Clopidogrel Bisulfate (Plavix) 75 mg PO DAILY ELLEN Stop: 12/04/17 09:01 Last Admin: 06/06/17 09:45 Dose: 75 mg Dextrose/Water (Dextrose 50% (Syg)) 25 ml IVP AD PRN PRN Reason: Hypoglycemia Stop: 12/04/17 05:31 Glucagon (Glucagen) 1 mg IM ONCE PRN PRN Reason: Hypoglycemia Stop: 12/04/17 05:31 Glucose (Gluctose) 15 gm PO ONCE PRN PRN Reason: Hypoglycemia Stop: 12/04/17 05:31 Glucose (Gluctose) 30 gm PO ONCE PRN PRN Reason: Hypoglycemia Stop: 12/04/17 05:31 Dextrose (Dextrose 5%) 1,000 mls @ 100 mls/hr IVC .Q10H PRN PRN Reason: HYPOGLYCEMIA Stop: 12/04/17 05:31 Insulin Human Lispro (Humalog) 0 units SQ HS ELLEN PRN Reason: Protocol Stop: 12/05/17 21:16 Last Admin: 06/05/17 22:32 Dose: 7 units Insulin Human Lispro (Humalog) 0 units SQ TIDAC ELLEN PRN Reason: Protocol Stop: 12/06/17 07:31 Last Admin: 06/06/17 09:46 Dose: 12 units Isosorbide Mononitrate (Imdur) 30 mg PO DAILY [facility] Stop: 12/05/17 09:01 Last Admin: 06/06/17 09:45 Dose: 30 mg Metoprolol Succinate (Toprol Xl) 12.5 mg PO DAILY [facility] Stop: 12/04/17 15:31 Last Admin: 06/06/17 09:45 Dose: 12.5 mg Naloxone HCl (Narcan) 0.4 mg IVP Q2MIN PRN PRN Reason: SEE COMMENTS Stop: 12/04/17 05:29 - Imaging and Cardiology Chest Xray: report reviewed Stress Test: report reviewed Echo: report reviewed Cardiac cath: report reviewed - EKG Interpretation EKG results cardiology: other (Telemetry reviewed with average HR previous 12 hours noted to be 63, SR.) Consult Discharge Plan - Plan [facility]: [facility]Primary Care Provider[facility] -
[2017-06-06] MEDS ORDERED: Insulin LISPRO 300 UNITS/3 ML VIAL SQ STA (10:58)
[2017-06-06 11:47] VITALS: BP 129/79
[2017-06-06 12:32] LABS: Hematocrit 41.9 % (37.5-50.1); Hemoglobin 13.4 g/dL (12.9-16.9); Mean Corpuscular Hemoglobin 28.8 pg (28.0-33.3); Mean Corpuscular Volume 89.9 fL (83.0-100.0); Mean Platelet Volume 10.2 fL (9.4-12.4); Platelet Count 214 K/mcL (140-400); Red Blood Count 4.66 M/mcL (4.19-5.50); Red Cell Distribution Width 14.2 % (11.5-14.5)
[2017-06-06 12:33] LABS: BUN/Creatinine Ratio 20 (6-26); Blood Urea Nitrogen 21 mg/dL (8-23); Calcium 9.4 mg/dL (8.6-10.3); Carbon Dioxide 25 mEq/L (23-29); Chloride 102 mEq/L (98-107); Glucose 355 mg/dL (70-105); Osmolality,Calculated 293 (280-300); Potassium 4.3 mEq/L (3.5-5.1); Sodium 133 mEq/L (136-145); eGFR For African Americans > 60 (> 60); eGFR For Non-African Americans > 60 (> 60)
--- NOTE | 2017-06-06 13:37 | Discharge Summary ---
- NOTES TO OUTPATIENT PROVIDER Notes to Outpatient Provider: Follow up with PCP in 2-3 days after discharge. [facility] 1-2 weeks after discharge. Orders not resulted at time of discharge: Pending orders 06/04/17 08:07 NM jefferson perf SPECT multi [NM] Routine 06/05/17 15:36 ECG 12 lead ECG [ECG] Stat 06/06/17 06:00 ECG 12 lead ECG [ECG] AM 0600 Date of Encounter: 06/06/17 Time of Encounter: 13:36 - Discharge Diagnosis (1) Abnormal stress test Priority: Primary Status: Acute (2) Chest pain Priority: Secondary Status: Resolved Qualifiers: Chest pain type: precordial pain Qualified Code(s): R07.2 - Precordial pain (3) Coronary artery disease Priority: Secondary Status: Chronic Qualifiers: Coronary Disease-Associated Artery/Lesion type: [place] artery [place] vs. transplanted heart: [place] heart Associated angina: with stable angina Qualified Code(s): I25.118 - Atherosclerotic heart disease of [place] coronary artery with other forms of angina pectoris (4) Diabetes Priority: Secondary Status: Chronic Qualifiers: Diabetes mellitus type: type 2 Diabetes mellitus long-term insulin use: with long-term use Diabetes mellitus complication status: with circulatory complication Diabetes mellitus complication detail: with other circulatory complications Qualified Code(s): E11.59 - Type 2 diabetes mellitus with other circulatory complications; Z79.4 - [facility] (current) use of insulin; Z79.4 - [facility] (current) use of insulin; 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 Ng is a 66 year old male admitted for chest pain. He was admitted to general medical floor with telemetry. Troponin was negative x 2. Cardiology was consulted. He underwent stress test which was abnormal - mild basal to distal inferior wall perfusion defect in which ischemia cannot be excluded. Chest pain resolved after admission. ECHO showed TTE with LVEF preserved, no segmental wall motion abnormalities. He had LHC with balloon angioplasty to RCA. He was continued on home aspirin, plavix, statin, and beta jose l. He was counselled on smoking cessation. 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 He will follow up with PCP in 2-3 days after discharge. Patient has met maximum benefit of this hospitalization and will be discharged home in stable condition. Discharge discussed with: patient, nurse, case management, other (Pharmacist) - Time Spent with Patient Total time spent providing and/or coordinating discharge services: Greater than 30 minutes - Discharge Medications Home Medications: Insulin Glargine [Lantus] 30 unit SQ HS 03/24/15 [History] Aspirin Enteric Coated [Aspirin EC] 81 mg PO DAILY #0 tablet.dr 03/25/15 [Rx] Atorvastatin [Lipitor] 80 mg PO HS #30 tablet 03/25/15 [Rx] Clopidogrel Bisulfate [Plavix] 75 mg PO DAILY #30 tablet 03/25/15 [Rx] Cholecalciferol (D-3) [Vitamin D] 1,000 unit PO DAILY 06/04/17 [History] Ergocalciferol (VITAMIN D2) [Vitamin D2] 50,000 unit PO QWEEK 06/04/17 [History] Insulin ASPART [NovoLOG] 0 unit SQ TID PRN 06/04/17 [History] metFORMIN [Glucophage] 1,000 mg PO BID 06/04/17 [History] Metoprolol XL (24 HR) Succ [Toprol Xl] 12.5 mg PO DAILY tab.er.24h 06/06/17 [Rx ] Allergies/Adverse Reactions: 3 Allergy/AdvReac Type Severity Reaction Status Date / Time No Known Allergies Allergy Verified 03/24/15 11:36 Date of admission: 06/04/17 05:25 Primary care physician: PCP [facility] Consults: 06/04/17 14:38 Consult to Cardiology [CONS] Routine Comment: Consulting Provider: Santos Sandoval Reason for Consult: abnormal stress Time Notified: 14:38 Call Completed: Yes 06/05/17 15:36 Consult to Cardiac Rehabilitation-Phase1 [CONS] Routine Comment: Reason for Consult: post op PCI Call Completed: Yes 06/06/17 12:27 Consult to Podiatry [CONS] Routine Consulting Provider: Magen Rivers Reason for Consult: LLE Osteomyelitis, Wound Vac Management Time Notified: 12:25 Call Completed: Yes Discharging clinician: Kentrell Sidhu Anticipated date of discharge: 06/06/17 - Constitutional Vitals: Temp Pulse Resp BP Pulse Ox 97.8 F 75 18 129/79 97 06/06/17 11:43 06/06/17 11:43 06/06/17 11:43 06/06/17 11:43 06/06/17 11:43 General appearance: Present: cooperative, A&O X 3, pleasant, no acute distress, obese, answers questions appropriately - Respiratory Respiratory exam: Present: CTAB. Absent: accessory muscle use, rales, rhonchi, wheezes Additional comments: Normal WOB - Cardiovascular Cardiovascular exam: Present: RRR, +S1, +S2. Absent: diastolic murmur, gallop, rubs, systolic murmur Additional comments: No BLE edema - GI/Abdominal GI/Abdominal exam: Present: normal bowel sounds, soft. Absent: distended, hepatomegaly, mass, splenomegaly, tenderness - Psychiatric Psychiatric exam: Present: normal affect, normal mood. Absent: anxious, depressed - Skin Skin exam: Present: dry, intact, warm. Absent: cyanosis, rash - Patient Status Disposition: Home, Self-Care Condition: Good Functional capacity at discharge: independent ambulation Overall status at discharge: patient is back to baseline - Discharge Instructions [facility] - Forms: ED Satisfaction Letter Additional Instructions: Follow up with PCP in 2-3 days after discharge. Follow up with [facility] 1-2 weeks after discharge. - Diet and Activity Activity: resume usual activities as tolerated Diet: other (Cardiac, Diabetic)
--- NOTE | 2017-06-06 13:49 | Invasive Diagnostic Lab Proc ---
Name: Rodolfo Ng Date of Study: 06/05/2017 Date: 1950 Ht: 68.9in Medical Record#: [id number] Age: 66 Wt: 229.28lb Gender: Male BSA: 2.19 Order #: [id number] BMI: 33.96 Physicians Procedure Physician: Cassandra Elias MD, [facility] Referring MD: Referring MD: Staff Name Position Time In Emma Falcon RT (R) Monitor 02:25 PM Amarilis Jenkins RN Furnace Setter 02:25 PM Bob Avelar RT (R) Scrub 02:25 PM Indications Indication Abnormal Test - Stress Procedures Performed Procedure L HRT ARTERY/VENTRICLE ANGIO PRQ CARDIAC ANGIOPLAST 1 ART Pre-Procedure Checklist Informed consent is complete signed and on chart. H&P is on chart. ID band is on and ID verified with patient. Patient NPO for procedure The procedure was described for the patient and questions were answered. ECG is on chart. Rhythm: NSR Plan of Care Patient will tolerate the procedure without complications. Adequate level of comfort will be maintained. Hemodynamics will remain stable Patient will recover from procedure without complications. Respiratory function will be maintained. Cardiac rhythm will remain stable. Patient temperature will be maintained. Patient and/or family have verbalized understanding of the procedure. Patient Education Chief Complaint/Reason for Test: Cardiac Cath Developmental Category: Geriatric (65+ years) Developmentally Appropriate for Age: Yes Learning Barriers: None Education Needs: Procedure Education Method: Verbal Information Taught: Cardiac Cath Educational Evaluation: Able to repeat information Intravenous Access Time IV Size Location DC'd Fluid/Drip Rate Units RN 02:16 PM 20g 1 03/29" Patent On Arrival Rt Antecubital 0.9NaCl 25 ml/hr Amarilis Jenkins RN Allergies No Known Allergies Vital Signs Time BP (mmHg) HR (bpm) O2 Sat. RR (bpm) LOC 02:24 PM / 75 97 % 17 5 = Fully awake and oriented or at pre-proc level 02:27 PM / % 4 = Oriented but drowsy 02:25 PM 114 / 69 78 94 % 16 02:30 PM 123 / 66 75 93 % 15 02:35 PM 99 / 58 71 90 % 14 02:35 PM 106 / 59 68 91 % 02:40 PM 114 / 65 74 92 % 22 02:45 PM 104 / 66 72 91 % 12 02:50 PM 108 / 61 70 90 % 13 02:55 PM 106 / 58 71 90 % 18 03:00 PM 111 / 62 69 90 % 13 03:05 PM 112 / 56 69 91 % 22 03:41 PM 102 / 68 76 91 % 16 5 = Fully awake and oriented or at pre-proc level 04:00 PM 98 / 64 71 93 % 16 5 = Fully awake and oriented or at pre-proc level 04:15 PM 114 / 70 67 90 % 16 5 = Fully awake and oriented or at pre-proc level 04:30 PM 108 / 73 71 94 % 16 5 = Fully awake and oriented or at pre-proc level 04:45 PM 121 / 77 72 93 % 17 5 = Fully awake and oriented or at pre-proc level 05:00 PM 118 / 90 67 95 % 16 5 = Fully awake and oriented or at pre-proc level 05:17 PM 134 / 72 69 94 % 16 5 = Fully awake and oriented or at pre-proc level Procedural Medications Time Medication Dose Units Method Given By 02:27 PM Oxygen 2 L/min nasal cannula Amarilis Jenkins RN 02:27 PM Versed 2 mg Intravenous [place]Amar[place] montiel RN 02:27 PM Fentanyl 50 mcg Intravenous Amarilis Jenkins RN 02:31 PM Lidocaine 2% 20 ml Subcutaneous Cassandra Elias MD, FACC 02:35 PM Oxygen 4 L/min nasal cannula Amarilis Jenkins RN 02:44 PM Versed 1 mg Intravenous Amarilis Jenkins RN 02:44 PM Fentanyl 25 mcg Intravenous Amarilis Jenkins RN 02:44 PM Angiomax 0.75mg/kg bolus: 16 ml Intravenous Amarilis Jenkins RN 02:45 PM Angiomax 1.75mg/kg/hr: 37 ml Intravenous Amarilis Jenkins RN 03:06 PM Nitroglycerin 200 mcg Intracoronary Cassandra Elias MD, FACC 03:09 PM Plavix 300 mg Orally Amarilis Jenkins RN ASA Classification: CLASS II- Mild systemic disease (i.e. well-controlled diabetes, hypertension, asthma, cigarette smoking) Sis Score Preprocedure Postprocedure Activity 2- Moves 4 extremities sustained head lift Activity 2- Moves 4 extremities sustained head lift Circulation 2- SBP +/= 20 points of pre-anesthetic level Circulation 2- SBP +/= 20 points of pre-anesthetic level Consciousness 2- Awake and alert oriented x 3 Consciousness 2- Awake and alert oriented x 3 O2 Saturation 2- Able to maintain O2 satruation of 92% on room air O2 Saturation 2- Able to maintain O2 satruation of 92% on room air Respiratory 2- Able to deep breathe and cough well Respiratory 2- Able to deep breathe and cough well Total Score 10 Total Score 10 Contrast Agent: Isovue Diagnostic Contrast: 100 ml Total Contrast: 100 ml Fluoro Dose: 837 mGy Procedure Log Time Note Enter By 01:42 PM Patient taken to floor [email or web address] 02:13 PM CathStat 02:22 PM Vitals capture started with the following parameters, Patient=Adult, Interval=5 min, Initial Yclcihlz=982 mmHg, Deflation Rate=5 mmHg, Cuff placed on Right Arm 02:22 PM Recorded ECG: HR=83 Condition=Condition 1 02:22 PM Vitals capture stopped. 02:24 PM Vitals capture started with the following parameters, Patient=Adult, Interval=5 min, Initial Gyrdnlqa=653 mmHg, Deflation Rate=5 mmHg, Cuff placed on Right Arm 02:24 PM Pt arrived to engineering laboratory technician 2 at 14:24 scoates 02:25 PM Emma Falcon RT (R) Position: Monitor Time in: 14:25 scoates 02:25 PM HR=78 bpm, RDLC=859/69 mmhg, SpO2=94.0 %, Resp=16 B/min, Comment=NSR 02:25 PM Amarilis Jenkins RN Position: Furnace Setter Time in: 14:25 scoates 02:25 PM Bob Avelar RT (R) Position: Scrub Time in: 14:25 scoates 02:25 PM Patient charges- Angio tray pack, Navilyst 3mm J, Pulse Oximetry and ACIST tubing and transducer scoates 02:25 PM Case Delayed No scoates 02:25 PM Hair removed from procedure site in holding area using clippers. Bilateral groin prepped with Chloraprep by Amarilis Jenkins RN, then patient was draped. Skin intact. scoates 02:25 PM Physician arrived 14:25 scoates 02:27 PM ASA Class CLASS II- Mild systemic disease (i.e. well-controlled diabetes, hypertension, asthma, cigarette smoking) scoates 02:27 PM Meet and greet completed scoates 02:27 PM Sign in performed according to hospital policy. scoates 02:27 PM Procedure start 14: scoates 02: PM Time: 14:27 Patient comfortable and pain free: Yes scoates 02: PM Time: 14:27LOC: 4 = Oriented but drowsy scoates 02: PM Time: 14:27 Oxygen on at 2 L/min per nasal cannula by Amarilis Jenkins RN scoates 02: PM Time: 14: Versed 2 mg Intravenous Given by Amarilis Jenkins RN scoates 02: PM Time: 14: Fentanyl 50 mcg Intravenous Given by Amarilis Jenkins RN scoates 02: PM Pressure channel 1 zero failed. 02:28 PM Pressure channel 1 zeroed. 02:29 PM Recorded ECG: HR=74 Condition=Condition 1 02:30 PM HR=75 bpm, FCFE=586/66 mmhg, SpO2=93.0 %, Resp=15 B/min, Comment=NSR 02:31 PM Time: 14:31 15 ml Lidocaine 2% to right groin Subcutaneous Given by Cassandra Elias MD, [facility] [email or web address] 02:33 PM Access obtained by percutaneous puncture. 5Fr 10cm Terumo [place] sheath placed in right Femoral artery. [id number] [email or web address] 02:33 PM 0.035 145cm Navilyst 3mmJ wire [id number] [email or web address] 02:33 PM 5Fr FL 4 catheter inserted over the wire [facility] [email or web address] 02:35 PM Recorded Pressure: Ao, HR=72, Condition=Condition 1 (Aorta) Ao 83/63/72 02:35 PM HR=71 bpm, NIBP=99/58 mmhg, SpO2=90.0 %, Resp=14 B/min, Comment=NSR 02:35 PM LCA angiography performed in multiple views. [email or web address] 02:35 PM NIBP STAT measurement started. 02:35 PM Time: 14:35 Oxygen on at 4 L/min per nasal cannula by Amarilis Jenkins RN [email or web address] 02:35 PM HR=68 bpm, OXTR=026/59 mmhg, SpO2=91.0 %, Comment=NSR 02:36 PM Catheter removed [email or web address] 02:36 PM 5Fr FR 4 catheter inserted over the wire [facility] [email or web address] 02:36 PM RCA angiography performed in multiple views. [email or web address] 02:37 PM Recorded Pressure: Ao, HR=77, Condition=Condition 1 (Aorta) Ao 93/71/81 02:38 PM Catheter removed [email or web address] 02:38 PM 5Fr Pigtail catheter inserted over the wire [facility] [email or web address] 02:38 PM Catheter selectively placed in left ventricle [email or web address] 02:39 PM Bolus angiogram of left Ventricle complete: 8 ml/sec for a total of 24 mls [email or web address] 02:39 PM Pressure channel 1 zeroed. 02:39 PM Recorded Pressure: LV, HR=89, Condition=Condition 1 (Left Ventricle) LV 77/10/12 02:39 PM Recorded Pressure: LV, Ao, HR=76, Condition=Condition 1 (Left Ventricle) LV 104/26/54, (Aorta) Ao 87/59/72 02:40 PM HR=74 bpm, HSLQ=192/65 mmhg, SpO2=92.0 %, Resp=22 B/min, Comment=NSR 02:40 PM Catheter removed [email or web address] 02:42 PM Sheath exchanged for a 6 Fr 11 cm Cordis Haleigh sheath [id number] [email or web address] 02:42 PM 6Fr JR 4 Runway guide catheter was used to cannulate the PCI vessel successfully. reused? No [email or web address] 02:42 PM .014 Prowater 180cm guide wire across target lesion- successful. reused? No [email or web address] 02:42 PM Inflation device was opened. [email or web address] 02:44 PM Time: 14:44 Versed 1 mg Intravenous Given by Amarilis Jenkins RN [email or web address] 02:44 PM Time: 14:44 Fentanyl 25 mcg Intravenous Given by Amarilis Jenknis RN [email or web address] 02:44 PM Time: 14:44 Angiomax 0.75mg/kg bolus: 16 ml Intravenous Given by Amarilis Jenkins RN Chavira pump [email or web address] 02:45 PM HR=72 bpm, ANPE=530/66 mmhg, SpO2=91.0 %, Resp=12 B/min, Comment=NSR 02:45 PM Pressure channel 1 zeroed. 02:45 PM Time: 14:45 Angiomax 1.75mg/kg/hr: 37 ml Intravenous Given by Amarilis Jenkins RN Chavira pump [email or web address] 02:47 PM 2.5 mm x 12mm NC Trek Rx balloon across target lesion- successful. reused? No [email or web address] 02:50 PM HR=70 bpm, JEFX=978/61 mmhg, SpO2=90.0 %, Resp=13 B/min, Comment=NSR 02:50 PM Balloon inflated @ 20 monique for 30 seconds [email or web address] 02:51 PM Balloon inflated @ 20 monique for 20 seconds [email or web address] 02:52 PM Balloon catheter removed intact. [email or web address] 02:52 PM 3.0 mm x 12mm NC Emerge balloon across target lesion- successful. reused? No [email or web address] 02:55 PM HR=71 bpm, ZXAO=828/58 mmhg, SpO2=90.0 %, Resp=18 B/min, Comment=NSR 02:55 PM Balloon inflated @ 12 monique for 30 seconds [email or web address] 02:56 PM Balloon inflated @ 20 monique for 45 seconds [email or web address] 02:57 PM Balloon inflated @ 20 monique for 30 seconds [email or web address] 02:58 PM Recorded Pressure: Ao, HR=71, Condition=Condition 1 (Aorta) Ao 91/62/75 03:00 PM HR=69 bpm, NKNV=897/62 mmhg, SpO2=90.0 %, Resp=13 B/min, Comment=NSR 03:00 PM Balloon inflated @ 16 monique for 15 seconds [email or web address] 03:01 PM Balloon catheter removed intact. [email or web address] 03:01 PM 3.0 mm x 20mm NC Emerge balloon across target lesion- successful. reused? No [email or web address] 03:02 PM Recorded Pressure: Ao, HR=70, Condition=Condition 1 (Aorta) Ao 96/62/77 03:03 PM Balloon inflated @ 20 monique for 36 seconds [email or web address] 03:05 PM HR=69 bpm, BAGW=037/56 mmhg, SpO2=91.0 %, Resp=22 B/min, Comment=NSR 03:05 PM Balloon catheter removed intact. [email or web address] 03:06 PM Time: 15:06 Nitroglycerin 200 mcg Intracoronary Given by Cassandra Elias MD, [facility] [email or web address] 03:07 PM Guide wire removed intact. [email or web address] 03:08 PM Guide catheter removed intact. [email or web address] 03:08 PM Bolus angiogram of right Femoral complete: 4 ml/sec for a total of 7 mls [email or web address] 03:08 PM Procedure completed at 15:08 [email or web address] 03:10 PM Time: 15:09 Plavix 300 mg Orally Given by Amarilis Jenkins RN [email or web address] 03:12 PM Coronary Dominance: right [email or web address] 03:12 PM Did you address NIKKY flow and Dominance? Yes [email or web address] 03:12 PM Sign out completed: Radiation Dose 837.37 mGy Fluoro Time: 10.4 Isovue 370 - 200ml contrast 100 ml given by Cassandra Elias MD, [facility]. Complications: NoneCardiac Rehab Consult needed: YesConfirmed administered medications: Yes [email or web address] 03:12 PM Isovue 370 - 200ml,1 Bottle(s) used. [email or web address] 03:12 PM Sheath left in place to be pulled on floor/holding areaV+Pad [email or web address] 03:12 PM Estimated Blood Loss: minimal [email or web address] 03:12 PM Post ECG NSR [email or web address] 03:12 PM Post Blood Pressure 116/63 [email or web address] 03:13 PM Information taught Cardiac Cath, PCI, and V+ Pad [email or web address] 03:13 PM Education needs Procedure, Plan of Care, and Disease Process [email or web address] 03:13 PM Learning barriers :None [email or web address] 03:13 PM Education Methods Verbal [email or web address] 03:13 PM Education evaluation Able to repeat information [email or web address] 03:13 PM Site status No bleeding/hematoma - Rt Groin as reported by Bob Avelar RT (R) at 15:13 [email or web address] 03:13 PM Opsite applied [email or web address] 03:13 PM Delay to floor Bed availability [email or web address] 03:13 PM Family placed in consult room. [email or web address] 03:13 PM Complications: None [email or web address] 03:13 PM Fluoro Time: 10.4 [email or web address] 03:14 PM Isovue 370 - 200ml contrast 100 ml given by Autumn Elias MD. [email or web address] 03:14 PM Radiation Dose 837.37 mGy [email or web address] 03:26 PM Report given to Debbie IVEY Pt taken to Holding room Room #2. 15:26 [email or web address] 03:27 PM Patient out of room: 15:27 [email or web address] 06:08 PM Report called to Kayleigh belle 06:10 PM Patient taken to floor 2NE. [email or web address] Complications Complication None None Hemodynamics Pressures Site Systolic/A Wave Diastolic/V Wave Mean AO 83 63 72 AO 93 71 81 LV 77 10 12 LV 104 26 54 AO 87 59 72 AO 91 62 75 AO 96 62 77 Post Procedure Information Blood Pressure: 116/63 mmHg Rhythm: NSR Post procedural instructions were given Site Checks Time Location Status Staff Sheath In? Note 03:13 PM Rt Groin No bleeding/hematoma Bob Avelar RT (R) Yes 03:41 PM Rt Groin No bleeding/ No Hematoma Alice, Amarilis RN Yes 04:00 PM Rt Groin No bleeding/ No Hematoma Marcia Washington RN Yes 04:15 PM Rt Groin No bleeding/ No Hematoma Lyn Ellsworth RN Yes 04:30 PM Rt Groin No bleeding/ No Hematoma Lyn Ellsworth RN Yes 04:45 PM Rt Groin No bleeding/ No Hematoma Sites, Beryl RT (R) Yes 04:57 PM Rt Groin No bleeding/ No Hematoma [place] montiel RN Yes 05:16 PM Rt Groin No bleeding/ No Hematoma AliceAmarilis montiel RN Yes Pulses Time Site Pre-Procedure Post-Procedure Note 06/05/2017 2:16:00 PM Rt DP/PT 1+ Doppler 06/05/2017 2:16:00 PM Lt DP/PT Doppler 1+ 06/05/2017 3:41:00 PM Lt DP/pt 1+ 06/05/2017 3:41:00 PM Rt DP/pt Doppler 06/05/2017 4:56:00 PM Lt DP and PT 1+ 06/05/2017 4:56:00 PM Rt DP and PT Doppler 06/05/2017 4:58:00 PM Lt DP and pt 1+ 06/05/2017 5:00:00 PM Rt DP and pt Doppler 06/05/2017 5:16:00 PM Rt DP and pt Doppler 06/05/2017 5:16:00 PM Lt DP and pt 1+ Updated by Emma Falcon RT(R) on 06/06/2017 1:43:26 PM electronically signed on 06/06/2017 1:43:48 PM with status of Final
--- NOTE | 2017-06-06 16:34 | Electrocardiograph Report ---
[place] [id number] Test Date: 2017-06-05 Pat Name: Rodolfo Ng Department: 111 Room: 2NE28 Gender: M Care Taker: CELESTINE : 1950 Requested By: Cassandra Elias Order Number: [id number] Reading MD: Clyde Pierce DO Measurements Intervals [place] Rate: 73 P: 6 MD: 206 QRS: -21 QRSD: 99 T: 12 QT: 394 QTc: 419 Interpretive Statements SINUS RHYTHM INFERIOR MYOCARDIAL INFARCTION, PROBABLY OLD Electronically Signed On 06-06-2017 16:32:43 EDT by Clyde Pierce DO
== END 2017-06-06 14:05 | disposition home or self-care (01) ==
LOC: EMEROO 04:11 → 3BNU 04:11 → 2NENU 06-05 17:46
PROVIDERS: ADMIT Internal Medicine; ATTEND Registered Nurse